=== PATIENT | female | born 1970 | race African-American/Black ===

== ENCOUNTER → 2018-04-11 | Outpatient (CLI) | payer OTHER ==
--- NOTE | 2018-04-11 18:04 | RAD ---
EXAM: AP, lateral and lumbosacral spot views DATE: 04/11/2018 12:00 AM INDICATION: low back pain from injury four years ago, increased pain over the last couple months COMPARISON: No Prior FINDINGS: Small ribs are seen at T12. There are 5 nonrib-bearing vertebral bodies although there is partial sacralization of L5. Vertebral body heights are preserved. Mild L3-4, L4-5 facet degenerative changes with subchondral sclerosis. No spondylolisthesis. Vascular calcifications are seen. Tubal ligation clip is seen in the right pelvis. IMPRESSION: 1. No evidence of acute fracture or subluxation. 2. 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 3. Minimal facet degenerative changes in the lower lumbar spine. Electronically signed by: Benedict Shaikh MD (04/11/2018 6:00 PM) [facility]
== END | disposition home or self-care (01) ==
LOC: RAD 14:50
PROVIDERS: ATTEND Family Medicine
DX: M47.896 Other spondylosis, lumbar region (principal)
CPT/HCPCS: 72100

== ENCOUNTER → 2020-03-20 | Outpatient (CLI) | payer OTHER ==
[~2020-03-20] MED LIST: DULO60CA6 PO
--- NOTE | 2020-03-20 13:10 | RAD ---
EXAM: Right foot 3 views. HISTORY: Nonhealing wound right heel. COMPARISON: None. FINDINGS: Three views of the right foot are obtained. There is a broad deep ulcer along the lateral aspect of the heel spanning 4.4 cm. It appears to extend to the level of the bone inferiorly. No clear cortical erosion is identified to clearly indicate acute osteomyelitis. 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 No fractures are identified. Alignment is normal. Joint spaces are maintained. IMPRESSION: 1. Large deep ulcer along the lateral/inferior heel. This extends to near the bone, but there is no definitive acute osteomyelitis by radiographs. Electronically signed by: Alphonse Casanova MD (03/20/2020 1:08 PM) [id number]
== END | disposition home or self-care (01) ==
LOC: RAD 12:11
PROVIDERS: ATTEND Preventive Medicine Undersea and Hyperbaric Medicine
DX: L97.418 Non-pressure chronic ulcer of right heel and midfoot with other specified severity (principal)
CPT/HCPCS: 73630

== ENCOUNTER → 2020-08-02 | Outpatient (CLI) | payer OTHER ==
--- NOTE | 2020-08-02 17:22 | KCIC ---
EXAM: MRI left hand/thumb without contrast INDICATION: Pain at PIP joint of left first digit after recent injury COMPARISON: None TECHNIQUE: Multiplanar, multisequence imaging of the left thumb without contrast. FINDINGS: There is diffuse T2 hyperintense signal throughout most of the thumb distal phalanx with probable low signal fracture line at the base extending to the interphalangeal joint. There is mild surrounding soft tissue edema. Mild tenosynovitis of the flexor tendon to the first digit. The extensor tendon is intact. Small amount of fluid deep to the ulnar sagittal band at the MCP joint. Collateral ligament are intact. No other fracture or marrow signal abnormality identified in the visualized portion of the hand.. IMPRESSION: 1. Probable intra-articular fracture of the distal phalanx with extensive T2 hyperintense signal abnormality. Correlate clinical history. The signal abnormality could also be seen with a large interosseous cyst or infection. 2. Tenosynovitis of the flexor tendon to the thumb. Electronically signed by: Dede Jurado MD (08/02/2020 5:19 PM) [id number]
== END ==
LOC: KCIC MRI 12:51
PROVIDERS: ATTEND Family Medicine
DX: S63.682A Other sprain of left thumb, initial encounter (principal); X58.XXXA Exposure to other specified factors, initial encounter; Y93.89 Activity, other specified; Y92.89 Other specified places as the place of occurrence of the external cause; Y99.8 Other external cause status
CPT/HCPCS: 73218